=== PATIENT | male | born 1950 | race Caucasian/White ===

== ENCOUNTER → 2024-07-17 12:14 | Outpatient (CLI) | payer OTHER, SELFPAY ==
--- NOTE | 2024-07-17 12:18 | DI.ECHO.S_ITS ---
[facility] : : [address] : : [facility] : : [place], : : [place] [address] : : Phone: [phone] Echocardiogram Report + + :Name: BRITTNEY POLLOCK Study Date: 07/17/2024 Height: 70 in : :[facility] ReadingLocation: Weight: 225 lb : : Gender: Male BSA: 2.2 m2 : :: 1950 Age: 73 yrs BP: 177/86 mmHg: :Reason For Study: HYPERTENSION : :Ordering Physician: BINTA, : :HERMELINDA Performed By: Phi Roberts : :Referring: HERMELINDA JUDD : + + Interpretation Summary The ejection fraction is estimated to be 60-65%. Diastolic function could not be accurately assessed due to unobtainable data. Borderline left atrial enlargement. The right ventricle is normal in size and function. No significant valvular abnormalities. Pulmonary artery pressures cannot be estimated because of the lack of a measurable TR jet velocity. Procedure: A two-dimensional transthoracic echocardiogram with color flow and Doppler was performed. The study quality was technically adequate. There is no prior echocardiogram noted for this patient. The patient was in normal sinus rhythm during the exam. Left Ventricle: The left ventricle is normal in size. There is normal left ventricular wall thickness. There is no ventricular septal defect visualized. The ejection fraction is estimated to be 60-65%. Diastolic function could not be accurately assessed due to unobtainable data. Right Ventricle: The right ventricle is normal in size and function. Atria: Borderline left atrial enlargement. Right atrial size is normal. There is no Doppler evidence for an atrial septal defect. Mitral Valve: The mitral valve is normal in structure and function. There is trace mitral regurgitation. Aortic Valve: The aortic valve is trileaflet. The aortic valve opens well. The aortic valve is mildly calcified. There is no aortic valve stenosis. No aortic regurgitation is present. Tricuspid Valve: The tricuspid valve is normal in structure and function. There is a trace or physiologic amount of tricuspid regurgitation. Pulmonary artery pressures cannot be estimated because of the lack of a measurable TR jet velocity. Pulmonic Valve: The pulmonic valve is normal in structure and function. There is trace pulmonic regurgitation. Great Vessels: The aortic root is normal size. The dimensions of the ascending aorta are normal. The pulmonary artery is normal size. The inferior vena cava was not well visualized. Pericardium/ Pleura There is no pericardial effusion. There is no pleural effusion. MMode/2D Measurements & Calculations LVIDd: 5.5 cm AoV Openin.9 cm LVIDs: 3.7 cm LVOT diam: 2.3 cm IVSd: 0.83 cm Ao root diam: 3.0 cm LVPWd: 0.59 cm asc Aorta Diam: 3.4 cm LV segundo. diameter/BSA (cm/m^2): 2.5 LV sys. diameter/BSA (cm/m^2): 1.7 FS: 32.5 % EPSS: 0.49 cm LA A2 area: 20.3 cm2 RA long axis: 5.3 cm LA A4 area: 23.4 cm2 RA area: 12.9 cm2 LA length (vol): 5.4 cm RA vol: 26.6 ml LA vol: 74.8 ml RA : 12.1 ml/m2 LA vol index: 34.1 ml/m2 RVD1 (basal): 3.6 cm RVD2 (mid): 2.9 cm TAPSE: 2.7 cm Doppler Measurements & Calculations Ao V2 max: 135.8 cm/sec LVOT Max Alexis: 108.2 cm/sec Ao V2 mean: 84.7 cm/sec LV V1 max P.7 mmHg Ao V2 VTI: 27.7 cm LV V1 VTI: 24.7 cm Ao max P.4 mmHg Ao mean P.3 mmHg PRECIOUS(I,D): 3.6 cm2 MV E max alexis: 87.9 cm/sec PRECIOUS(V,D): 3.2 cm2 MV A max alexis: 96.8 cm/sec PRECIOUS indexed to BSA (cm^2/m^2): 1.6 MV E/A: 0.91 sev ratio: 0.89 Med Peak E' Alexis: 8.1 cm/sec E/E' med: 10.8 Lat Peak E' Alexis: 8.5 cm/sec E/E' lat: 10.4 E/e' average: 10.6 MV dec time: 0.16 sec TR max alexis: 285.9 cm/sec TR max P.7 mmHg PA V2 max: 88.3 cm/sec SV(LVOT): 99.9 ml PA V2 mean: 59.1 cm/sec PA mean P.6 mmHg PA pr(Accel): 46.5 mmHg Reading Physician:04:49 PM
== END ==
PROVIDERS: Referring Provider Chiropractor; Visit Provider Chiropractor
DX: I10 Essential (primary) hypertension (principal)
CPT/HCPCS: 93306

== ENCOUNTER → 2024-08-04 10:00 | Outpatient (CLI) | payer OTHER, SELFPAY ==
--- NOTE | 2024-08-04 10:03 | EKG_ITS ---
[address] [address] Test Date: 2024-08-04 Pat Name: Jorge Hermosillo Department: [facility] Room: Gender: Male Slurry Blender: JOHNNA : 1950 Requested By: Order Number: [id number] Reading MD: Ty Vitale Measurements Intervals [place] Rate: 54 P: 12 SD: 142 QRS: -8 QRSD: 82 T: 0 QT: 394 QTc: 373 Interpretive Statements Sinus bradycardia Electronically Signed On 08-06-2024 19:02:50 PST by Ty Vitale
== END ==
PROVIDERS: Referring Provider Chiropractor; Visit Provider Chiropractor
DX: I10 Essential (primary) hypertension (principal)
CPT/HCPCS: 93005